=== PATIENT | female | born 1970 | race Caucasian/White ===

== ENCOUNTER 2019-04-06 08:59 | Day surgery (SDC) | payer BC ==
[2019-04-05 17:46] LABS: Basophils % 0.5 % (0-1.3); Hematocrit 41.8 % (36.0-45.0); Lymphocytes % 38.6 % (15.3-44.8); MPV 7.9 fL (7.6-11.3); RBC Red Blood Cell Count 4.85 M/uL (3.86-4.86)
[2019-04-05 17:50] LABS: Urine Appearance CLEAR; Urine Bilirubin NEGATIVE (NEG); Urine Blood NEGATIVE (NEG); Urine Color YELLOW; Urine Glucose NEGATIVE (NEG); Urine Protein NEGATIVE (NEG); Urine Specific Gravity <=1.005 (1.005-1.030); Urine Urobilinogen 0.2 mg/dL (0.2-1.0)
[2019-04-05 18:04] LABS: Urine Microscopic Reflex NO UMIC
[2019-04-06] MEDS ORDERED: BUPIVACAINE 0.25% PF 30 ML VIAL ONE (09:18)
[2019-04-06] MEDS ORDERED: GLYCOPYRROLATE 0.2 MG/ML SYR ONE (09:39)
[2019-04-06] MEDS ORDERED: propofoL 200 MG/20 ML VIAL IV ONE (09:39)
[2019-04-06] MEDS ORDERED: MIDAZOLAM HCL 2 MG/2 ML INJ ONE (09:39)
[2019-04-06] MEDS ORDERED: FENTANYL CITR 250 MCG/5 ML ONE (09:39)
[2019-04-06] MEDS ORDERED: dexAMETHasone 10 MG/ML VIAL ONE (09:39)
[2019-04-06] MEDS ORDERED: LIDOCAINE 2% MPF 5 ML VIAL ONE (09:39)
[2019-04-06] MEDS ORDERED: ROCURONIUM 50 MG/5 ML VIAL IV ONE (09:41)
[2019-04-06] MEDS ORDERED: SCOPOLAMINE HYDROBROMIDE PATCH TD ONE ×3 (09:50→10:56)
[2019-04-06] MEDS ORDERED: Ringers Lactate 0 ML IV ONE (09:51)
[2019-04-06] MEDS ORDERED: Ringers Lactate 1,000 ML IV ONE ×2 (10:56→11:30)
[2019-04-06] MEDS ORDERED: CEFAZOLIN/SWI 2gm 0 GM/0 ML SYR ONE (10:56)
[2019-04-06] MEDS ORDERED: KETOROLAC 30 MG/ML INJ ONE (11:06)
[2019-04-06] MEDS ORDERED: ONDANSETRON 4 MG/2 ML VIAL ONE (11:35)
[2019-04-06] MEDS ORDERED: PROMETHAZINE INJ 25 MG/ML AMP IV PRN (11:44)
[2019-04-06] MEDS ORDERED: MEPERIDINE HCL 25 MG/0.5 ML IM PRN (11:44)
[2019-04-06] MEDS ORDERED: HYDROCODONE/APAP 5/325 MG TAB PO PRN (11:44)
[2019-04-06] MEDS ORDERED: IBUPROFEN 200 MG TAB PO PRN (11:44)
--- NOTE | 2019-04-06 11:51 | P.BOP ---
Preoperative diagnosis: pelvic pain, endometriosis Postoperative diagnosis: same Primary procedure: laparoscopy B/L oophorectomy, left salpingectomy, endometriosis excision Finished Yarn Examiner: Bianka Nash Estimated blood loss: min Specimen: B/L oavries, left tube, right lateral wall endo Findings: cds obliteration w sigmoid/rectal adhesions,L distal lateral wall endo /scar Anesthesia: General Complications: None Transferred to: Recovery Room Condition: Good
[2019-04-06 12:32] VITALS: BP 107/79; TEMP 97.1; O2SAT 100
[2019-04-06] MEDS ORDERED: HYDROCODONE/APAP 5/325 MG TAB ONE (12:37)
--- NOTE | 2019-04-06 21:41 | OP ---
Date of Procedure: 04/06/2019 Surgeon: Rylee Quinones MD Shopping Inspector: Bianka Winchester. Preoperative Diagnoses: Pelvic pain, history of endometriosis. Postoperative Diagnoses: Pelvic pain, history of endometriosis. Procedures Performed: Diagnostic laparoscopy, bilateral oophorectomy, left salpingectomy, and endome triosis excision. Estimated Blood Loss: Minimal. Specimens: Bilateral ovaries, left tube, which was dilated and right lateral wall endometriosis. Complications: No complications. Drains: None. Condition: Patient's condition stable. Findings: The right lateral wall endometriosis was between the rectosigmoid and the ureter on the ri ght side. There was also an implant or possibly a scar from the hysterectomy in the distal part of t he left lateral wall and then the rectum was adhered to the peritoneum of the cul-de-sac obliterating the cul-de-sac. However, discrete endometriosis was not seen here and so there was no role for me t o take this down in order for her pain to be better. The patient tolerated the procedure well. Indications For Procedure: A 48-year-old female with history of endometriosis status post hysterecto my, right salpingectomy, and endometriosis removal in 2012. Has recurrent pain. Ultrasound showed o varian cysts at different points in time. The patient has been on suppression with Depot medroxyprog esterone, but not well tolerated and the pain was not well controlled either. That was stopped. Pat ient tried to observe, but the pain was impairing her quality of life severely and causing dysfunctio n to her occupation. So she is ready to have surgical intervention and so she was consented for a la paroscopy, bilateral oophorectomy, left salpingectomy, endometriosis excision, and then postoperative hormone therapy. Description Of Procedure: After informed consent was verified, patient was brought to the OR, placed in a supine fashion on the operating table. After general anesthesia was given, she was placed in d orsal lithotomy position using Landry stirrups. Pelvic exam performed and no adnexal masses were note d. Abdomen, vulva, vagina, and perineum were prepped and draped in a sterile fashion. Rodrigez was placed to drain the bladder and a sponge on the stick was placed in the vagina for manipulation. A 1 cm infraumbilical incision made with a scalpel. Fascia incised, tagged with 0 Vicryl sutures on both sides. Peritoneum entered bluntly and S-retractors placed. Javon introduced. Site of entry w as checked, unremarkable. The patient placed in Trendelenburg. Entire pelvic cavity was well inspec florentino. The appendix was visualized and normal. Left lower quadrant suprapubic 5 ports were placed aft er injecting 0.25% Marcaine with epi, 5 mL at each site of the fascia and the skin. Then survey of t he pelvic cavity was conducted. Both ovaries appeared to be unremarkable. The left tube was swollen . Distal hydrosalpinx was seen and the endometriosis was obvious on the right lateral wall between t he ureter and the rectosigmoid. There was an area of scar at the distal ureter on the left side and lateral wall and cul-de-sac was obliterated. The plan was to remove the endo on the right lateral wall. Then remove both ovaries and the left tub e. Peritoneum was picked up on the lateral wall and incised with the tip of scissors. Then, once this p galen was opened up retroperitoneally, the implants were circumferentially dissected. The peritoneum was taken down with the help of the LigaSure. These were deep infiltrating implants, so dissection h ad to be performed to separate them from the underlying tissues. There was mostly fatty tissue in th e presacral space, which had to be dissected. The vessels and the ureter were to the left lateral as pect. Once the implants were removed, they were handed off for permanent pathology. The right ovary was taken by cauterizing and cutting the right IP and then the left IP was taken down as well and th e tube removed with the ovary. All these were placed in a bag and retrieved through the umbilical po rt. Thorough irrigation and suction were performed. The pararectal spaces were opened up while atte mpting to see if there is any endometriosis and the cul-de-sac that is obliterated. The adhesions we re to the wall of the rectum from the posterior vaginal wall, possibly after endo treatment this coul d have occurred. Thorough irrigation was performed. No evidence of any bleeding. This was left federico ne as there was no evident endometriosis anywhere else on the vaginal cuff or in these adhesions. Al l the trocars were removed under direct vision after the specimens were retrieved. The fascia at the umbilicus and all the other 2 incisions were injected with Marcaine with epi and fascia closed with 0 Vicryl in [id number] stitch and then all 4-0 Vicryl sutures interrupted for skin closure. The vaginal sponge on a stick and Rodrigez were removed. Instrument, needle, and sponge counts were correc t at the end of the case. The patient tolerated the procedure well. She will follow up with me in 1 week. All the findings have been explained to the patient's and her family. MICHAEL Voice ID: [id number] Report ID: [id number]
== END 2019-04-06 13:31 | disposition home or self-care (01) ==
LOC: OR 08:59
PROVIDERS: ATTEND Obstetrics & Gynecology
PROC: 0UT64ZZ Resection of Left Fallopian Tube, Percutaneous Endoscopic Approach (ICD-10-PCS; 2019-04-06)
PROC: 0DBW4ZZ Excision of Peritoneum, Percutaneous Endoscopic Approach (ICD-10-PCS; 2019-04-06)
PROC: 0UT24ZZ Resection of Bilateral Ovaries, Percutaneous Endoscopic Approach (ICD-10-PCS; principal; 2019-04-06 10:30)
DX: N80.3 Endometriosis of pelvic peritoneum (principal); N83.202 Unspecified ovarian cyst, left side; N83.201 Unspecified ovarian cyst, right side; N70.11 Chronic salpingitis; Z90.710 Acquired absence of both cervix and uterus; Z90.79 Acquired absence of other genital organ(s)
CPT/HCPCS: 85025; 36415; 86900; 86850; 81025; 86901; 88305; 81003; 58661; 58662; J2704; J2250; J3010; J1100; J7120 ×2; J2405; J0690

== ENCOUNTER 2022-05-02 16:47 | Emergency (ER) | payer BC ==
--- OUTSIDE RECORDS SUMMARY | 2022-05-02 16:52 | XMS REPORT | Continuity of Care Document ---
:1970 Author Organization [facility] t Address [address] [place] [address] Care Team Providers Name Role Phone Belgica Aguilera MD Primary Care Physician CAROLINA_[place]armony Attending Clinician Unavailable Belgica Aguilera Attending Clinician [phone] Jayla Parra Attending Clinician [phone] KAR JO Attending Clinician Unavailable KULWINDER VILLEGAS Attending Clinician Unavailable [place]_[place] Admitting Clinician Unavailable Payers Payer Name Policy Type Policy Number Effective Date Expiration Date Rishi rahman [place] [id number] 2017 00:00:00 Problems Condition Condition Condition Status Onset Resolution Last Treating Co mments Source Name Details Category Date Date Treatment Clinician Date Long-term Long-term Problem Active Swe [facility] drug Drug 7-25 Communi therapy Therapy 00:00: ty 00 [facility] Hyperlipid Hyperlipid Problem Active 2020-05 S weann-mariey emia emia 2-06 Communi 00:00: ty 00 [facility] Hypothyroi Hypothyroi Problem Active 2020-05 S weeddie dism dism 0-20 Communi 00:00: ty 00 [facility] Scoliosis Scoliosis Problem Active 2020-05 Swe eddie deformity Deformity 0-20 Comm [facility] spine [facility] Spine 00:00: ty 00 [facility] Abdominal Abdominal Problem Active Swe eddie pain Pain 4-01 Communi 00:00: ty 00 [facility] Adult Adult Problem Active 2017-05 Formerly [facility] 0-16 Communi examinatio Examinatio 00:00: ty n n 00 [facility] Allergies, Adverse Reactions, Alerts Allergy Allergy Status Severity Reaction(s) Onset Inactive Treating Comm ents Source Name Type Date Date Clinician Latex Propensi Active Other (See blisters Me thodi ty to Comments) [address] st adverse 00:00: Hospita reaction 00 l s to drug Droperid Propensi Active Anxiety And Metho di ol ty to 06-[address] adverse 00:00: Hospita reaction 00 l s to drug Naproxen Propensi Active Swelling Meth ailyn ty to 2 st adverse 00:00: Hospita reaction 00 l s to drug INAPSINE Allergy Active Fatal Anaphylaxis Sw eeny to Communi substanc ty e Hospita l Clinics Family History Family Member Diagnosis Comments Start Date Stop Date Source Natural father Dementia [facility] Natural father Diabetes [facility] Natural mother Scoliosis [facility] Social History Social Habit Start Date Stop Date Quantity Comments Source Alcohol intake 2020-08-26 2020-08-26 Ex-drinker [facility] 00:00:00 00:00:00 (finding) Hospital Tobacco use and 2020-08-26 2020-08-26 Smokeless tobacco [facility] exposure 00:00:00 00:00:00 non-user Hospital Sex Assigned At [birth year] [facility] 00:00:00 00:00:00 Hospital Smoking Status Start Date Stop Date Source Never smoked tobacco [facility] Medications Ordered Filled Start Stop Current Ordering Indication Dosage Frequency Signature Comments Components Source Medication Medication Date Date Medication? Clinician (SIG) Name Name B12 LIPO-B B12 LIPO-B No B12 LIPO-B [place] [facility] 1-06 [facility] LIPO-B B12 LIPO-B No B12 LIPO-B [place] [facility] IM 1-06 [facility]-B B12 LIPO-B No B12 LIPO-B [place] [facility] IM 06 IM [facility] 00:00: [facility] B12 LIPO-B B12 LIPO-B 2022-0 No B12 LIPO-B [place] [facility] 05-22 [facility]IPO-B B12 LIPO-B 0 No B12 LIPO-B [place] [facility] IM 05-22 IM [facility] B12 LIPO-B B12 LIPO-B 0 No B12 LIPO-B [place] [facility] IM 05-22 IM [facility]:00: [facility] B12 LIPO-B B12 LIPO-B 0 No B12 LIPO-B [place] [facility] IM 05-22 IM [facility] B12 LIPO-B B12 LIPO-B 0 No B12 LIPO-B [place] [facility] IM 05-22 IM Communi 00:00: ty 00 [facility] Clinics B12 LIPO-B B12 LIPO-B 0 No B12 LIPO-B [place] [facility] IM 05-22 IM [facility] B12 LIPO-B B12 LIPO-B 0 No B12 LIPO-B [place] [facility] IM 05-22 IM Communi 00:00: ty 00 [facility] B12 LIPO-B B12 LIPO-B 0 No B12 LIPO-B [place] [facility] IM 05-22 IM [facility]: [facility] B12 LIPO-B B12 LIPO-B 0 No B12 LIPO-B [place] [facility] IM 05-22 IM [facility] 00:00: [facility] B12 LIPO-B B12 LIPO-B 0 No B12 LIPO-B [place] [facility] IM 05-22 IM [facility] 00:00: [facility] B12 LIPO-B B12 LIPO-B 0 No B12 LIPO-B [place] [facility] IM 05-22 IM Communi 00:00: ty 00 [facility]ita [facility] Clinics B12 LIPO-B B12 LIPO-B 0 No B12 LIPO-B [place] [facility] IM 05-22 IM [facility] B12 LIPO-B B12 LIPO-B 0 No B12 LIPO-B [place] [facility] IM -06 IM Communi 00:00: ty 00 [facility] B12 LIPO-B B12 LIPO-B No B12 LIPO-B [place] IM IM 05-22 IM Communi 00:00: ty 00 [facility] Kenalog 40 Kenalog 40 2020-05 No Kenalog 40 [place] mg/mL mg/mL 2-06 mg/mL Communi suspension suspension 17:19: suspension ty [facility] injectionTa injectionTa injectionT ke 2 mL by ke 2 mL by marshall 2 mL [facility] injection injection by route. route. injection route. meloxicam Yes TAKE 1 Method i (MOBIC) 15 6-[address] mg tablet 00:00: MOUTH Hospita 00 EVERY DAY l meloxicam Yes 15mg Q24H TAKE 1 Method i (MOBIC) 15 2-24 TABLET (15 st mg tablet 00:00: MG TOTAL) Hos david 00 BY MOUTH l DAILY NEEDED FOR MODERATE PAIN. estradioL Yes 1mg QD Take 1 mg Met hodi (ESTRACE) 1 -[address] MG tablet 00:00: daily. Hospit a 00 l estradiol 1 estradiol 1 No estradiol [place] mg tablet mg tablet 1 mg Commu ni Take 1 Take 1 tablet ty tablet tablet Take 1 Hospita every day every day tablet l by oral by oral every day Clin ics route for route for by oral 90 days. 90 days. route for 90 days. levothyroxi levothyroxi No 1 Q1D levothyrox [place] ne 75 mcg ne 75 mcg ine 75 mcg Communi tablet Take tablet Take tablet ty 1 tablet 1 tablet Take 1 Hospi ta every day every day tablet l by oral by oral every day Clin ics route. route. by oral route. meloxicam meloxicam No meloxicam [place] 15 mg 15 mg 15 mg Communi tablet prn tablet prn tablet prn ty [facility] metaxalone metaxalone No 1 Q1D metaxalone [place] 800 mg 800 mg 800 mg Communi tablet Take tablet Take tablet ty 1 tablet 1 tablet Take 1 Hospi ta every day every day tablet l by oral by oral every day Clin ics route at route at by oral bedtime. bedtime. route at bedtime. prednisone prednisone No prednisone [place] 20 mg 20 mg 20 mg Communi tablet prn tablet prn tablet prn [facility] estradiol 1 estradiol 1 No estradiol [place] mg tablet mg tablet 1 mg Commu ni Take 1 Take 1 tablet ty tablet tablet Take 1 Hospita every day every day tablet l by oral by oral every day Clin ics route for route for by oral 90 days. 90 days. route for 90 days. levothyroxi levothyroxi No levothyrox [place] ne 75 mcg ne 75 mcg ine 75 mcg Communi tablet Take tablet Take tablet ty 1 tablet 1 tablet Take 1 Hospi ta every day every day tablet l by oral by oral every day Clin ics route. route. by oral route. meloxicam meloxicam No meloxicam [place] 15 mg 15 mg 15 mg Communi tablet prn tablet prn tablet prn [facility] prednisone prednisone No prednisone [place] 20 mg 20 mg 20 mg Communi tablet prn tablet prn tablet prn [facility] rosuvastati rosuvastati No 1 Q1D rosuvastat [place] n 5 mg n 5 mg in 5 mg Communi tablet Take tablet Take tablet ty 1 tablet 1 tablet Take 1 Hospi ta every day every day tablet l by oral by oral every day Clin ics route. route. by oral route. estradiol 1 estradiol 1 No estradiol [place] mg tablet mg tablet 1 mg Commu ni Take 1 Take 1 tablet ty tablet tablet Take 1 Hospita every day every day tablet l by oral by oral every day Clin ics route for route for by oral 90 days. 90 days. route for 90 days. Kenalog 40 Kenalog 40 No 2mL Kenalog 40 [place] mg/mL mg/mL mg/mL Communi suspension suspension suspension ty for for for Hospita injection injection injection l Take 2 mL Take 2 mL Take 2 mL Clinics by by by injection injection injection route. route. route. levothyroxi levothyroxi No levothyrox [place] ne 75 mcg ne 75 mcg ine 75 mcg Communi tablet Take tablet Take tablet ty 1 tablet 1 tablet Take 1 Hospi ta every day every day tablet l by oral by oral every day Clin ics route. route. by oral route. meloxicam meloxicam No meloxicam [place] 15 mg 15 mg 15 mg Communi tablet prn tablet prn tablet prn [facility] prednisone prednisone No prednisone [place] 20 mg 20 mg 20 mg Communi tablet prn tablet prn tablet prn [facility] rosuvastati rosuvastati No 1 Q1D rosuvastat [place] n 5 mg n 5 mg in 5 mg Communi tablet Take tablet Take tablet ty 1 tablet 1 tablet Take 1 Hospi ta every day every day tablet l by oral by oral every day Clin ics route. route. by oral route. estradiol 1 estradiol 1 No estradiol [place] mg tablet mg tablet 1 mg Commu ni Take 1 Take 1 tablet ty tablet tablet Take 1 Hospita every day every day tablet l by oral by oral every day Clin ics route for route for by oral 90 days. 90 days. route for 90 days. levothyroxi levothyroxi No levothyrox [place] ne 75 mcg ne 75 mcg ine 75 mcg Communi tablet Take tablet Take tablet ty 1 tablet 1 tablet Take 1 Hospi ta every day every day tablet l by oral by oral every day Clin ics route. route. by oral route. meloxicam meloxicam No meloxicam [place] 15 mg 15 mg 15 mg Communi tablet prn tablet prn tablet prn [facility] prednisone prednisone No prednisone [place] 20 mg 20 mg 20 mg Communi tablet prn tablet prn tablet prn [facility] rosuvastati rosuvastati No rosuvastat [place] n 5 mg n 5 mg in 5 mg Communi tablet Take tablet Take tablet ty 1 tablet 1 tablet Take 1 Hospi ta every day every day tablet l by oral by oral every day Clin ics route. route. by oral route. estradiol 1 estradiol 1 No estradiol [place] mg tablet mg tablet 1 mg Commu ni Take 1 Take 1 tablet ty tablet tablet Take 1 Hospita every day every day tablet l by oral by oral every day Clin ics route for route for by oral 90 days. 90 days. route for 90 days. levothyroxi levothyroxi No levothyrox [place] ne 75 mcg ne 75 mcg ine 75 mcg Communi tablet Take tablet Take tablet ty 1 tablet 1 tablet Take 1 Hospi ta every day every day tablet l by oral by oral every day Clin ics route. route. by oral route. meloxicam meloxicam No meloxicam [place] 15 mg 15 mg 15 mg Communi tablet prn tablet prn tablet prn [facility] prednisone prednisone No prednisone [place] 20 mg 20 mg 20 mg Communi tablet prn tablet prn tablet prn [facility] rosuvastati rosuvastati No rosuvastat [place] n 5 mg n 5 mg in 5 mg Communi tablet Take tablet Take tablet ty 1 tablet 1 tablet Take 1 Hospi ta every day every day tablet l by oral by oral every day Clin ics route. route. by oral route. estradiol 1 estradiol 1 No estradiol [place] mg tablet mg tablet 1 mg Commu ni Take 1 Take 1 tablet ty tablet tablet Take 1 Hospita every day every day tablet l by oral by oral every day Clin ics route for route for by oral 90 days. 90 days. route for 90 days. levothyroxi levothyroxi No levothyrox [place] ne 75 mcg ne 75 mcg ine 75 mcg Communi tablet Take tablet Take tablet ty 1 tablet 1 tablet Take 1 Hospi ta every day every day tablet l by oral by oral every day Clin ics route. route. by oral route. meloxicam meloxicam No meloxicam [place] 15 mg 15 mg 15 mg Communi tablet prn tablet prn tablet prn [facility] prednisone prednisone No prednisone [place] 20 mg 20 mg 20 mg Communi tablet prn tablet prn tablet prn [facility] rosuvastati rosuvastati No rosuvastat [place] n 5 mg n 5 mg in 5 mg Communi tablet Take tablet Take tablet ty 1 tablet 1 tablet Take 1 Hospi ta every day every day tablet l by oral by oral every day Clin ics route. route. by oral route. estradiol 1 estradiol 1 No estradiol [place] mg tablet mg tablet 1 mg Commu ni Take 1 Take 1 tablet ty tablet tablet Take 1 Hospita every day every day tablet l by oral by oral every day Clin ics route for route for by oral 90 days. 90 days. route for 90 days. levothyroxi levothyroxi No levothyrox [place] ne 75 mcg ne 75 mcg ine 75 mcg Communi tablet Take tablet Take tablet ty 1 tablet 1 tablet Take 1 Hospi ta every day every day tablet l by oral by oral every day Clin ics route. route. by oral route. meloxicam meloxicam No meloxicam [place] 15 mg 15 mg 15 mg Communi tablet prn tablet prn tablet prn [facility] prednisone prednisone No prednisone [place] 20 mg 20 mg 20 mg Communi tablet prn tablet prn tablet prn [facility] rosuvastati rosuvastati No rosuvastat [place] n 5 mg n 5 mg in 5 mg Communi tablet Take tablet Take tablet ty 1 tablet 1 tablet Take 1 Hospi ta every day every day tablet l by oral by oral every day Clin ics route. route. by oral route. estradiol 1 estradiol 1 No estradiol [place] mg tablet mg tablet 1 mg Commu ni Take 1 Take 1 tablet ty tablet tablet Take 1 Hospita every day every day tablet l by oral by oral every day Clin ics route for route for by oral 90 days. 90 days. route for 90 days. levothyroxi levothyroxi No levothyrox [place] ne 75 mcg ne 75 mcg ine 75 mcg Communi tablet Take tablet Take tablet ty 1 tablet 1 tablet Take 1 Hospi ta every day every day tablet l by oral by oral every day Clin ics route. route. by oral route. meloxicam meloxicam No meloxicam [place] 15 mg 15 mg 15 mg Communi tablet prn tablet prn tablet prn [facility] prednisone prednisone No prednisone [place] 20 mg 20 mg 20 mg Communi tablet prn tablet prn tablet prn [facility] rosuvastati rosuvastati No rosuvastat [place] n 5 mg n 5 mg in 5 mg Communi tablet Take tablet Take tablet ty 1 tablet 1 tablet Take 1 Hospi ta every day every day tablet l by oral by oral every day Clin ics route. route. by oral route. estradiol 1 estradiol 1 No estradiol [place] mg tablet mg tablet 1 mg Commu ni Take 1 Take 1 tablet ty tablet tablet Take 1 Hospita every day every day tablet l by oral by oral every day Clin ics route for route for by oral 90 days. 90 days. route for 90 days. levothyroxi levothyroxi No levothyrox [place] ne 75 mcg ne 75 mcg ine 75 mcg Communi tablet Take tablet Take tablet ty 1 tablet 1 tablet Take 1 Hospi ta every day every day tablet l by oral by oral every day Clin ics route. route. by oral route. meloxicam meloxicam No meloxicam [place] 15 mg 15 mg 15 mg Communi tablet prn tablet prn tablet prn [facility] metaxalone metaxalone No metaxalone [place] 800 mg 800 mg 800 mg Communi tablet TAKE tablet TAKE tablet ty 1 TABLET BY 1 TABLET BY TAKE 1 Hospita MOUTH AT MOUTH AT TABLET BY l BEDTIME BEDTIME MOUTH AT Clini cs BEDTIME prednisone prednisone No prednisone [place] 20 mg 20 mg 20 mg Communi tablet prn tablet prn tablet prn [facility] rosuvastati rosuvastati No rosuvastat [place] n 5 mg n 5 mg in 5 mg Communi tablet Take tablet Take tablet ty 1 tablet 1 tablet Take 1 Hospi ta every day every day tablet l by oral by oral every day Clin ics route. route. by oral route. estradiol 1 estradiol 1 No estradiol [place] mg tablet mg tablet 1 mg Commu ni Take 1 Take 1 tablet ty tablet tablet Take 1 Hospita every day every day tablet l by oral by oral every day Clin ics route for route for by oral 90 days. 90 days. route for 90 days. levothyroxi levothyroxi No levothyrox [place] ne 75 mcg ne 75 mcg ine 75 mcg Communi tablet Take tablet Take tablet ty 1 tablet 1 tablet Take 1 Hospi ta every day every day tablet l by oral by oral every day Clin ics route. route. by oral route. meloxicam meloxicam No meloxicam [place] 15 mg 15 mg 15 mg Communi tablet prn tablet prn tablet prn [facility] metaxalone metaxalone No metaxalone [place] 800 mg 800 mg 800 mg Communi tablet TAKE tablet TAKE tablet ty 1 TABLET BY 1 TABLET BY TAKE 1 Hospita MOUTH AT MOUTH AT TABLET BY l BEDTIME BEDTIME MOUTH AT Clini cs BEDTIME prednisone prednisone No prednisone [place] 20 mg 20 mg 20 mg Communi tablet prn tablet prn tablet prn [facility] rosuvastati rosuvastati No rosuvastat [place] n 5 mg n 5 mg in 5 mg Communi tablet Take tablet Take tablet ty 1 tablet 1 tablet Take 1 Hospi ta every day every day tablet l by oral by oral every day Clin ics route. route. by oral route. estradiol 1 estradiol 1 No estradiol [place] mg tablet mg tablet 1 mg Commu ni Take 1 Take 1 tablet ty tablet tablet Take 1 Hospita every day every day tablet l by oral by oral every day Clin ics route for route for by oral 90 days. 90 days. route for 90 days. levothyroxi levothyroxi No levothyrox [place] ne 75 mcg ne 75 mcg ine 75 mcg Communi tablet Take tablet Take tablet ty 1 tablet 1 tablet Take 1 Hospi ta every day every day tablet l by oral by oral every day Clin ics route. route. by oral route. meloxicam meloxicam No meloxicam [place] 15 mg 15 mg 15 mg Communi tablet prn tablet prn tablet prn [facility] metaxalone metaxalone No metaxalone [place] 800 mg 800 mg 800 mg Communi tablet TAKE tablet TAKE tablet ty 1 TABLET BY 1 TABLET BY TAKE 1 Hospita MOUTH AT MOUTH AT TABLET BY l BEDTIME BEDTIME MOUTH AT [facility] BEDTIME prednisone prednisone No prednisone [place] 20 mg 20 mg 20 mg Communi tablet prn tablet prn tablet prn [facility] rosuvastati rosuvastati No rosuvastat [place] n 5 mg n 5 mg in 5 mg Communi tablet Take tablet Take tablet ty 1 tablet 1 tablet Take 1 Hospi ta every day every day tablet l by oral by oral every day Clin ics route. route. by oral route. estradiol 1 estradiol 1 No estradiol [place] mg tablet mg tablet 1 mg Commu ni Take 1 Take 1 tablet ty tablet tablet Take 1 Hospita every day every day tablet l by oral by oral every day Clin ics route for route for by oral 90 days. 90 days. route for 90 days. levothyroxi levothyroxi No levothyrox [place] ne 75 mcg ne 75 mcg ine 75 mcg Communi tablet Take tablet Take tablet ty 1 tablet 1 tablet Take 1 Hospi ta every day every day tablet l by oral by oral every day Clin ics route. route. by oral route. meloxicam meloxicam No meloxicam [place] 15 mg 15 mg 15 mg Communi tablet prn tablet prn tablet prn [facility] metaxalone metaxalone No metaxalone [place] 800 mg 800 mg 800 mg Communi tablet TAKE tablet TAKE tablet ty 1 TABLET BY 1 TABLET BY TAKE 1 Hospita MOUTH AT MOUTH AT TABLET [facility] M[facility]one No prednisone [place] 20 mg 20 mg 20 mg Communi tablet prn tablet prn tablet prn ty [facility] rosuvastati rosuvastati No rosuvastat [place] n 5 mg n 5 mg in 5 mg Communi tablet Take tablet Take tablet ty 1 tablet 1 tablet Take 1 Hospi ta every day every day tablet l by oral by oral every day Clin ics route. route. by oral route. estradiol 1 estradiol 1 No estradiol [place] mg tablet mg tablet 1 mg Commu ni Take 1 Take 1 tablet ty tablet tablet Take 1 Hospita every day every day tablet l by oral by oral every day Clin ics route for route for by oral 90 days. 90 days. route for 90 days. levothyroxi levothyroxi No levothyrox [place] ne 75 mcg ne 75 mcg ine 75 mcg Communi tablet TAKE tablet TAKE tablet ty 1 TABLET BY 1 TABLET BY TAKE 1 [facility] MOUTH EVERY MOUTH EVERY TABLET BY l DAY DAY MOUTH Clinics EVERY DAY meloxicam meloxicam No meloxicam [place] 15 mg 15 mg 15 mg Communi tablet prn tablet prn tablet prn ty [facility] metaxalone metaxalone No metaxalone [place] 800 mg 800 mg 800 mg Communi tablet TAKE tablet TAKE tablet ty 1 TABLET BY 1 TABLET BY TAKE 1 [facility] MOUTH AT MOUTH AT TABLET BY l [facility] M[facility]nisone No prednisone [place] 20 mg 20 mg 20 mg Communi tablet prn tablet prn tablet prn [facility] rosuvastati rosuvastati No rosuvastat [place] n 5 mg n 5 mg in 5 mg Communi tablet Take tablet Take tablet ty 1 tablet 1 tablet Take 1 Hospi ta every day every day tablet l by oral by oral every day Clin ics route. route. by oral route. estradiol 1 estradiol 1 No estradiol [place] mg tablet mg tablet 1 mg Commu ni Take 1 Take 1 tablet ty tablet tablet Take 1 Hospita every day every day tablet l by oral by oral every day Clin ics route for route for by oral 90 days. 90 days. route for 90 days. levothyroxi levothyroxi No levothyrox [place] ne 75 mcg ne 75 mcg ine 75 mcg Communi tablet TAKE tablet TAKE tablet ty 1 TABLET BY 1 TABLET BY TAKE 1 Hospita MOUTH EVERY MOUTH EVERY TABLET BY l DAY DAY MOUTH Clinics EVERY DAY meloxicam meloxicam No meloxicam [place] 15 mg 15 mg 15 mg Communi tablet prn tablet prn tablet prn [facility] metaxalone metaxalone No metaxalone [place] 800 mg 800 mg 800 mg Communi tablet TAKE tablet TAKE tablet ty 1 TABLET BY 1 [facility] TABLET BY l BEDTIME BEDTIME MOUTH AT Clini cs BEDTIME prednisone prednisone No prednisone [place] 20 mg 20 mg 20 mg Communi tablet prn tablet prn tablet prn [facility] No rosuvastat [place] n 5 mg n 5 mg in 5 mg Communi tablet Take tablet Take tablet ty 1 tablet 1 tablet Take 1 Hospi ta every day every day tablet l by oral by oral every day Clin ics route. route. by oral route. estradiol 1 estradiol 1 No estradiol [place] mg tablet mg tablet 1 mg Commu ni Take 1 Take 1 tablet ty tablet tablet Take 1 Hospita every day every day tablet l by oral by oral every day Clin ics route for route for by oral 90 days. 90 days. route for 90 days. levothyroxi levothyroxi No levothyrox [place] ne 75 mcg ne 75 mcg ine 75 mcg Communi tablet TAKE tablet TAKE tablet ty 1 TABLET BY 1 TABLET BY TAKE 1 Hospita MOUTH EVERY MOUTH EVERY TABLET BY l DAY DAY MOUTH Clinics EVERY DAY meloxicam meloxicam No meloxicam [place] 15 mg 15 mg 15 mg Communi tablet prn tablet prn tablet prn [facility] metaxalone metaxalone No metaxalone [place] 800 mg 800 mg 800 mg Communi tablet TAKE tablet TAKE tablet ty 1 TABLET BY 1 [facility]T [facility] TABLET BY l BEDTIME BEDTIME MOUTH AT Clini cs BEDTIME prednisone prednisone No prednisone [place] 20 mg 20 mg 20 mg Communi tablet prn tablet prn tablet prn [facility] rosuvastati rosuvastati No rosuvastat [place] n 5 mg n 5 mg in 5 mg Communi tablet Take tablet Take tablet ty 1 tablet 1 tablet Take 1 Hospi ta every day every day tablet l by oral by oral every day Clin ics route. route. by oral route. estradiol 1 estradiol 1 No estradiol [place] mg tablet mg tablet 1 mg Commu ni Take 1 Take 1 tablet ty tablet tablet Take 1 Hospita every day every day tablet l by oral by oral every day Clin ics route for route for by oral 90 days. 90 days. route for 90 days. levothyroxi levothyroxi No levothyrox [place] ne 75 mcg ne 75 mcg ine 75 mcg Communi tablet TAKE tablet TAKE tablet ty 1 TABLET BY 1 TABLET BY TAKE 1 Hospita MOUTH EVERY MOUTH EVERY TABLET BY l DAY DAY MOUTH Clinics EVERY DAY meloxicam meloxicam No meloxicam [place] 15 mg 15 mg 15 mg Communi tablet prn tablet prn tablet prn [facility] [place] metaxalone metaxalone No metaxalone [place] 800 mg 800 mg 800 mg Communi tablet TAKE tablet TAKE tablet ty 1 TABLET BY 1 TABLET BY TAKE 1 Hospita MOUTH AT MOUTH AT TABLET BY l BEDTIME BEDTIME MOUTH AT Clini cs BEDTIME prednisone prednisone No prednisone [place] 20 mg 20 mg 20 mg Communi tablet prn tablet prn tablet prn [facility] rosuvastati rosuvastati No rosuvastat [place] n 5 mg n 5 mg in 5 mg Communi tablet Take tablet Take tablet ty 1 tablet 1 tablet Take 1 Hospi ta every day every day tablet l by oral by oral every day Clin ics route. route. by oral route. estradiol 1 estradiol 1 No estradiol [place] mg tablet mg tablet 1 mg Commu ni Take 1 Take 1 tablet ty tablet tablet Take 1 Hospita every day every day tablet l by oral by oral every day Clin ics route for route for by oral 90 days. 90 days. route for 90 days. levothyroxi levothyroxi No levothyrox [place] ne 75 mcg ne 75 mcg ine 75 mcg Communi tablet TAKE tablet TAKE tablet ty 1 TABLET BY 1 TABLET BY TAKE 1 Hospita MOUTH EVERY MOUTH EVERY TABLET BY l DAY DAY MOUTH Clinics EVERY DAY meloxicam meloxicam No meloxicam [place] 15 mg 15 mg 15 mg Communi tablet prn tablet prn tablet prn [facility] metaxalone metaxalone No metaxalone [place] 800 mg 800 mg 800 mg Communi tablet TAKE tablet TAKE tablet ty 1 TABLET BY 1 TABLET BY TAKE 1 Hospita MOUTH AT MOUTH AT TABLET BY l BEDTIME BEDTIME MOUTH AT Clini cs BEDTIME prednisone prednisone No prednisone [place] 20 mg 20 mg 20 mg Communi tablet prn tablet prn tablet prn ty [facility] rosuvastati rosuvastati No rosuvastat [place] n 5 mg n 5 mg in 5 mg Communi tablet Take tablet Take tablet ty 1 tablet 1 tablet Take 1 Hospi ta every day every day tablet l by oral by oral every day Clin ics route. route. by oral route. estradiol 1 estradiol 1 No estradiol [place] mg tablet mg tablet 1 mg Commu ni Take 1 Take 1 tablet ty tablet tablet Take 1 Hospita every day every day tablet l by oral by oral every day Clin ics route for route for by oral 90 days. 90 days. route for 90 days. levothyroxi levothyroxi No levothyrox [place] ne 75 mcg ne 75 mcg ine 75 mcg Communi tablet TAKE tablet TAKE tablet ty 1 TABLET BY 1 TABLET BY TAKE 1 Hospita MOUTH EVERY MOUTH EVERY TABLET BY l DAY DAY MOUTH Clinics EVERY DAY meloxicam meloxicam No meloxicam [place] 15 mg 15 mg 15 mg Communi tablet prn tablet prn tablet prn ty [facility] metaxalone metaxalone No metaxalone [place] 800 mg 800 mg 800 mg Communi tablet TAKE tablet TAKE tablet ty 1 TABLET BY 1 TABLET BY TAKE 1 Hospita MOUTH AT MOUTH AT TABLET BY l BEDTIME BEDTIME MOUTH AT Clini cs BEDTIME prednisone prednisone No prednisone [place] 20 mg 20 mg 20 mg Communi tablet prn tablet prn tablet prn [facility] No rosuvastat [place] n 5 mg n 5 mg in 5 mg Communi tablet Take tablet Take tablet ty 1 tablet 1 tablet Take 1 Hospi ta every day every day tablet l by oral by oral every day Clin ics route. route. by oral route. estradiol 1 estradiol 1 No estradiol [place] mg tablet 1 mg tablet 1 1 mg C [facility] TABLET TABLET tablet 1 ty ORALLY ORALLY TABLET Hospita DAILY 90 DAILY 90 ORALLY l DAYS DAYS DAILY 90 Clinics DAYS levothyroxi levothyroxi No levothyrox [place] ne 75 mcg ne 75 mcg ine 75 mcg Communi tablet TAKE tablet TAKE tablet ty 1 TABLET BY 1 TABLET BY TAKE 1 Hospita MOUTH EVERY MOUTH EVERY TABLET BY l DAY DAY MOUTH Clinics EVERY DAY meloxicam meloxicam No meloxicam [place] 15 mg 15 mg 15 mg Communi tablet prn tablet prn tablet prn ty Hospita l Clinics metaxalone metaxalone No metaxalone [place] 800 mg 800 mg 800 mg Communi tablet TAKE tablet TAKE tablet ty 1 TABLET BY 1 TABLET BY TAKE 1 Hospita MOUTH AT MOUTH [facility] rosuvastati No rosuvastat [place] n 5 mg n 5 mg in 5 mg Communi tablet Take tablet Take tablet ty 1 tablet 1 tablet Take 1 Hospi ta every day every day tablet l by oral by oral every day Clin ics route. route. by oral route. estradiol 1 estradiol 1 No estradiol [place] mg tablet 1 mg tablet 1 1 mg C [facility] TABLET TABLET tablet 1 ty ORALLY ORALLY TABLET Hospita DAILY 90 DAILY 90 ORALLY l DAYS DAYS DAILY 90 Clinics DAYS levothyroxi levothyroxi No levothyrox [place] ne 75 mcg ne 75 mcg ine 75 mcg Communi tablet TAKE tablet TAKE tablet ty 1 TABLET BY 1 TABLET BY TAKE 1 Hospita MOUTH EVERY MOUTH EVERY TABLET BY l DAY DAY MOUTH Clinics EVERY DAY meloxicam meloxicam No meloxicam [place] 15 mg 15 mg 15 mg Communi tablet prn tablet prn tablet prn ty [facility] Clinics metaxalone metaxalone No metaxalone [place] 800 mg 800 mg 800 mg Communi tablet TAKE tablet TAKE tablet ty 1 TABLET BY 1 TABLET BY TAKE 1 Hospita MOUTH AT MOUTH AT TABLET [facility] rosuvastati No 1 Q1D rosuvastat [place] n 5 mg n 5 mg in 5 mg Communi tablet Take tablet Take tablet ty 1 tablet 1 tablet Take 1 Hospi ta every day every day tablet l by oral by oral every day Clin ics route. route. by oral route. triazolam triazolam No triazolam [place] 0.25 mg 0.25 mg 0.25 mg Commun i tablet TAKE tablet TAKE tablet ty 1 TABLET 1 1 TABLET 1 TAKE 1 H ospita HOUR BEFORE HOUR BEFORE TABLET 1 l APPOINTMENT APPOINTMENT HOUR Amauri powell . BRING . BRING BEFORE REMAINING REMAINING APPOINTMEN TABLETS TO TABLETS TO T. BRING APPOINTMENT APPOINTMENT REMAINING WITH YOU. WITH YOU. TABLETS TO APPOINTMEN T WITH YOU. Immunizations Ordered Immunization Filled Immunization Date Status Commen ts Source Name Name SARS-COV-2 SARS-COV-2 2020-06-18 Completed [place] [facility] (COVID-19) vaccine, (COVID-19) vaccine, 00:00:00 [facility] UNSPECIFIED UNSPECIFIED COVID-19 COVID-19 2020-06-18 Completed [place] [facility] (SARS-COV-2) (SARS-COV-2) 00:00:00 [facility] linics vaccine, unspecified vaccine, unspecified COVID-19 COVID-19 2020-06-18 Completed [place] [facility] (SARS-COV-2) (SARS-COV-2) 00:00:00 [facility] vaccine, unspecified vaccine, unspecified COVID-19 COVID-19 2020-06-18 Completed [place] [facility] (SARS-COV-2) (SARS-COV-2) 00:00:00 [facility] vaccine, unspecified vaccine, unspecified COVID-19 COVID-19 2020-06-18 Completed [place] [facility] (SARS-COV-2) (SARS-COV-2) 00:00:00 [facility] vaccine, unspecified vaccine, unspecified COVID-19 COVID-19 2020-06-18 Completed [place] [facility] (SARS-COV-2) (SARS-COV-2) 00:00:00 [facility] vaccine, unspecified vaccine, unspecified COVID-19 COVID-19 2020-06-18 Completed [place] [facility] (SARS-COV-2) (SARS-COV-2) 00:00:00 [facility] vaccine, unspecified vaccine, unspecified COVID-19 COVID-19 2020-06-18 Completed [place] [facility] (SARS-COV-2) (SARS-COV-2) 00:00:00 [facility] vaccine, unspecified vaccine, unspecified COVID-19 COVID-19 2020-06-18 Completed [place] [facility] (SARS-COV-2) (SARS-COV-2) 00:00:00 [facility] vaccine, unspecified vaccine, unspecified COVID-19 COVID-19 2020-06-18 Completed [place] [facility] (SARS-COV-2) (SARS-COV-2) 00:00:00 [facility] vaccine, unspecified vaccine, unspecified COVID-19 COVID-19 2020-06-18 Completed [place] [facility] (SARS-COV-2) (SARS-COV-2) 00:00:00 [facility] vaccine, unspecified vaccine, unspecified COVID-19 COVID-19 2020-06-18 Completed [place] [facility] (SARS-COV-2) (SARS-COV-2) 00:00:00 [facility] vaccine, unspecified vaccine, unspecified COVID-19 COVID-19 2020-06-18 Completed [place] [facility] (SARS-COV-2) (SARS-COV-2) 00:00:00 [facility] vaccine, unspecified vaccine, unspecified COVID-19 COVID-19 2020-06-18 Completed [place] [facility] (SARS-COV-2) (SARS-COV-2) 00:00:00 [facility] vaccine, unspecified vaccine, unspecified COVID-19 COVID-19 2020-06-18 Completed [place] [facility] (SARS-COV-2) (SARS-COV-2) 00:00:00 [facility] vaccine, unspecified vaccine, unspecified COVID-19 COVID-19 2020-06-18 Completed [place] [facility] (SARS-COV-2) (SARS-COV-2) 00:00:00 [facility] vaccine, unspecified vaccine, unspecified COVID-19 COVID-19 2020-06-18 Completed [place] [facility] (SARS-COV-2) (SARS-COV-2) 00:00:00 [facility] vaccine, unspecified vaccine, unspecified COVID-19 COVID-19 2020-06-18 Completed [place] [facility] (SARS-COV-2) (SARS-COV-2) 00:00:00 [facility] vaccine, unspecified vaccine, unspecified COVID-19 COVID-19 2020-06-18 Completed [place] [facility] (SARS-COV-2) (SARS-COV-2) 00:00:00 [facility] vaccine, unspecified vaccine, unspecified COVID-19 COVID-19 2020-06-18 Completed [place] [facility] (SARS-COV-2) (SARS-COV-2) 00:00:00 [facility] vaccine, unspecified vaccine, unspecified SARS-COV-2 SARS-COV-2 2020-05-21 Completed [place] [facility] (COVID-19) vaccine, (COVID-19) vaccine, 00:00:00 [facility] UNSPECIFIED UNSPECIFIED COVID-19 COVID-19 2020-05-21 Completed [place] [facility] (SARS-COV-2) (SARS-COV-2) 00:00:00 [facility] vaccine, unspecified vaccine, unspecified COVID-19 COVID-19 2020-05-21 Completed [place] [facility] (SARS-COV-2) (SARS-COV-2) 00:00:00 [facility] vaccine, unspecified vaccine, unspecified COVID-19 COVID-19 2020-05-21 Completed [place] [facility] (SARS-COV-2) (SARS-COV-2) 00:00:00 [facility] vaccine, unspecified vaccine, unspecified COVID-19 COVID-19 2020-05-21 Completed [place] [facility] (SARS-COV-2) (SARS-COV-2) 00:00:00 [facility] vaccine, unspecified vaccine, unspecified COVID-19 COVID-19 2020-05-21 Completed [place] [facility] (SARS-COV-2) (SARS-COV-2) 00:00:00 [facility] vaccine, unspecified vaccine, unspecified COVID-19 COVID-19 2020-05-21 Completed [place] [facility] (SARS-COV-2) (SARS-COV-2) 00:00:00 [facility] vaccine, unspecified vaccine, unspecified COVID-19 COVID-19 2020-05-21 Completed [place] [facility] (SARS-COV-2) (SARS-COV-2) 00:00:00 [facility] vaccine, unspecified vaccine, unspecified COVID-19 COVID-19 2020-05-21 Completed [place] [facility] (SARS-COV-2) (SARS-COV-2) 00:00:00 [facility] vaccine, unspecified vaccine, unspecified COVID-19 COVID-19 2020-05-21 Completed [place] [facility] (SARS-COV-2) (SARS-COV-2) 00:00:00 [facility] vaccine, unspecified vaccine, unspecified COVID-19 COVID-19 2020-05-21 Completed [place] [facility] (SARS-COV-2) (SARS-COV-2) 00:00:00 [facility] vaccine, unspecified vaccine, unspecified COVID-19 COVID-19 2020-05-21 Completed [place] [facility] (SARS-COV-2) (SARS-COV-2) 00:00:00 [facility] vaccine, unspecified vaccine, unspecified COVID-19 COVID-19 2020-05-21 Completed [place] [facility] (SARS-COV-2) (SARS-COV-2) 00:00:00 [facility] vaccine, unspecified vaccine, unspecified COVID-19 COVID-19 2020-05-21 Completed [place] [facility] (SARS-COV-2) (SARS-COV-2) 00:00:00 [facility] vaccine, unspecified vaccine, unspecified COVID-19 COVID-19 2020-05-21 Completed [place] [facility] (SARS-COV-2) (SARS-COV-2) 00:00:00 [facility] vaccine, unspecified vaccine, unspecified COVID-19 COVID-19 2020-05-21 Completed [place] [facility] (SARS-COV-2) (SARS-COV-2) 00:00:00 [facility] vaccine, unspecified vaccine, unspecified COVID-19 COVID-19 2020-05-21 Completed [place] [facility] (SARS-COV-2) (SARS-COV-2) 00:00:00 [facility] vaccine, unspecified vaccine, unspecified COVID-19 COVID-19 2020-05-21 Completed [place] [facility] (SARS-COV-2) (SARS-COV-2) 00:00:00 [facility] vaccine, unspecified vaccine, unspecified COVID-19 COVID-19 2020-05-21 Completed [place] [facility] (SARS-COV-2) (SARS-COV-2) 00:00:00 [facility] vaccine, unspecified vaccine, unspecified COVID-19 COVID-19 2020-05-21 Completed [place] [facility] (SARS-COV-2) (SARS-COV-2) 00:00:00 [facility]ics vaccine, unspecified vaccine, unspecified influenza, influenza, 2019-06-06 Completed [place] [facility] injectable, injectable, 00:00:00 [facility] quadrivalent quadrivalent influenza, influenza, 2019-06-06 Completed [place] [facility] injectable, injectable, 00:00:00 [facility] quadrivalent quadrivalent influenza, influenza, 2019-06-06 Completed [place] [facility] injectable, injectable, 00:00:00 [facility] quadrivalent quadrivalent influenza, influenza, 2019-06-06 Completed [place] [facility] injectable, injectable, 00:00:00 [facility] quadrivalent quadrivalent influenza, influenza, 2019-06-06 Completed [place] [facility] injectable, injectable, 00:00:00 [facility] quadrivalent quadrivalent influenza, influenza, 2019-06-06 Completed [place] [facility] injectable, injectable, 00:00:00 [facility] quadrivalent quadrivalent influenza, influenza, 2019-06-06 Completed [place] [facility] injectable, injectable, 00:00:00 [facility] quadrivalent quadrivalent influenza, influenza, 2019-06-06 Completed [place] [facility] injectable, injectable, 00:00:00 [facility] quadrivalent quadrivalent influenza, influenza, 2019-06-06 Completed [place] [facility] injectable, injectable, 00:00:00 [facility] Cli [facility] quadrivalent quadrivalent influenza, influenza, 2019-06-06 Completed [place] [facility] injectable, injectable, 00:00:00 [facility] quadrivalent quadrivalent influenza, influenza, 2019-06-06 Completed [place] [facility] injectable, injectable, 00:00:00 [facility] Cli [facility] quadrivalent quadrivalent influenza, influenza, 2019-06-06 Completed [place] [facility] injectable, injectable, 00:00:00 [facility] Cli [facility] quadrivalent quadrivalent influenza, influenza, 2019-06-06 Completed [place] [facility] injectable, injectable, 00:00:00 [facility] Cli [facility] quadrivalent quadrivalent influenza, influenza, 2019-06-06 Completed [place] [facility] injectable, injectable, 00:00:00 [facility] Cli [facility] quadrivalent quadrivalent influenza, influenza, 2019-06-06 Completed [place] [facility] injectable, injectable, 00:00:00 [facility] Cli [facility] quadrivalent quadrivalent influenza, influenza, 2019-06-06 Completed [place] [facility] injectable, injectable, 00:00:00 [facility] Cli [facility] quadrivalent quadrivalent influenza, influenza, 2019-06-06 Completed [place] [facility] injectable, injectable, 00:00:00 [facility] Cli [facility] quadrivalent quadrivalent influenza, influenza, 2019-06-06 Completed [place] [facility] injectable, injectable, 00:00:00 [facility] Cli [facility] quadrivalent quadrivalent influenza, influenza, 2019-06-06 Completed [place] [facility] injectable, injectable, 00:00:00 [facility] Cli [facility] quadrivalent quadrivalent influenza, influenza, 2019-06-06 Completed [place] [facility] injectable, injectable, 00:00:00 [facility] quadrivalent quadrivalent influenza, influenza, 2018-03-01 Completed [place] [facility] injectable, injectable, 10:44:20 Hospital Cli [facility] quadrivalent, quadrivalent, preservative free preservative free influenza, influenza, 2018-03-01 Completed [place] [facility] injectable, injectable, 10:44:20 Hospital Cli [facility]ics quadrivalent, quadrivalent, preservative free preservative free influenza, influenza, 2018-03-01 Completed [place] [facility] injectable, injectable, 10:44:20 Hospital Cli nics quadrivalent, quadrivalent, preservative free preservative free influenza, influenza, 2018-03-01 Completed [place] [facility] injectable, injectable, 10:44:20 Hospital Cli nics quadrivalent, quadrivalent, preservative free preservative free influenza, influenza, 2018-03-01 Completed [place] [facility] injectable, injectable, 10:44:20 Hospital Cli nics quadrivalent, quadrivalent, preservative free preservative free influenza, influenza, 2018-03-01 Completed [place] [facility] injectable, injectable, 10:44:20 Hospital Cli nics quadrivalent, quadrivalent, preservative free preservative free influenza, influenza, 2018-03-01 Completed [place] [facility] injectable, injectable, 10:44:20 Hospital Cli nics quadrivalent, quadrivalent, preservative free preservative free influenza, influenza, 2018-03-01 Completed [place] [facility] injectable, injectable, 10:44:20 Hospital Cli nics quadrivalent, quadrivalent, preservative free preservative free influenza, influenza, 2018-03-01 Completed [place] [facility] injectable, injectable, 10:44:20 Hospital Cli nics quadrivalent, quadrivalent, preservative free preservative free influenza, influenza, 2018-03-01 Completed [place] [facility] injectable, injectable, 10:44:20 Hospital Cli nics quadrivalent, quadrivalent, preservative free preservative free influenza, influenza, 2018-03-01 Completed [place] [facility] injectable, injectable, 10:44:20 Hospital Cli nics quadrivalent, quadrivalent, preservative free preservative free influenza, influenza, 2018-03-01 Completed [place] [facility] injectable, injectable, 10:44:20 Hospital Cli nics quadrivalent, quadrivalent, preservative free preservative free influenza, influenza, 2018-03-01 Completed [place] [facility] injectable, injectable, 10:44:20 Hospital Cli [facility]ics quadrivalent, quadrivalent, preservative free preservative free influenza, influenza, 2018-03-01 Completed [place] [facility] injectable, injectable, 10:44:20 Hospital Cli nics quadrivalent, quadrivalent, preservative free preservative free influenza, influenza, 2018-03-01 Completed [place] [facility] injectable, injectable, 10:44:20 Hospital Cli [facility]ics quadrivalent, quadrivalent, preservative free preservative free influenza, influenza, 2018-03-01 Completed [place] [facility] injectable, injectable, 10:44:20 Hospital Cli [facility]ics quadrivalent, quadrivalent, preservative free preservative free influenza, influenza, 2018-03-01 Completed [place] [facility] injectable, injectable, 10:44:20 Hospital Cli [facility]ics quadrivalent, quadrivalent, preservative free preservative free influenza, influenza, 2018-03-01 Completed [place] [facility] injectable, injectable, 10:44:20 Hospital Cli [facility] quadrivalent, quadrivalent, preservative free preservative free influenza, influenza, 2018-03-01 Completed [place] [facility] injectable, injectable, 10:44:20 Hospital Cli [facility] quadrivalent, quadrivalent, preservative free preservative free influenza, influenza, 2018-03-01 Completed [place] [facility] injectable, injectable, 10:44:20 Hospital Cli [facility] quadrivalent, quadrivalent, preservative free preservative free Vital Signs Vital Name Observation Time Observation Value Comments Source BP Diastolic 2021-12-08 00:00:00 90 mm[Hg] [facility] Height 2021-12-08 00:00:00 66 [in_i] [facility] s BMI (Body Mass 2021-12-08 00:00:00 28 kg/m2 [facility] s BP Systolic 2021-12-08 00:00:00 115 mm[Hg] [facility] s Body Weight 2021-12-08 00:00:00 2777.6 [oz_av] [facility] s BP Diastolic 2021-10-30 00:00:00 81 mm[Hg] [facility] s Height 2021-10-30 00:00:00 66 [in_i] [facility] s BMI (Body Mass 2021-10-30 00:00:00 27.6 kg/m2 [facility]) [facility] s BP Systolic 2021-10-30 00:00:00 129 mm[Hg] [facility] s Body Weight 2021-10-30 00:00:00 2736 [oz_av] [facility] s BP Diastolic 2021-10-21 00:00:00 79 mm[Hg] [facility] s Height 2021-10-21 00:00:00 66 [in_i] [facility] s BMI (Body Mass 2021-10-21 00:00:00 27.3 kg/m2 [facility] BP Systolic 2021-10-21 00:00:00 132 mm[Hg] [facility] Body Weight 2021-10-21 00:00:00 2704 [oz_av] [facility] s BP Diastolic 2021-10-14 00:00:00 75 mm[Hg] [facility] s Height 2021-10-14 00:00:00 66 [in_i] [facility] s BMI (Body Mass 2021-10-14 00:00:00 27.2 kg/m2 [facility]) [facility] s BP Systolic 2021-10-14 00:00:00 129 mm[Hg] [facility] Body Weight 2021-10-14 00:00:00 2696 [oz_av] [facility] s BP Diastolic 2021-09-30 00:00:00 64 mm[Hg] [facility] Height 2021-09-30 00:00:00 66 [in_i] [facility] s BMI (Body Mass 2021-09-30 00:00:00 27.3 kg/m2 [facility] s BP Systolic 2021-09-30 00:00:00 120 mm[Hg] [facility] Body Weight 2021-09-30 00:00:00 2705.6 [oz_av] [facility] s BP Diastolic 2021-09-16 00:00:00 73 mm[Hg] [facility] s Height 2021-09-16 00:00:00 66 [in_i] [facility] BMI (Body Mass 2021-09-16 00:00:00 27.4 kg/m2 [facility] BP Systolic 2021-09-16 00:00:00 142 mm[Hg] [facility] s Body Weight 2021-09-16 00:00:00 2720 [oz_av] [facility] s BP Diastolic 2021-09-04 00:00:00 81 mm[Hg] [facility] s Height 2021-09-04 00:00:00 66 [in_i] [facility] s BMI (Body Mass 2021-09-04 00:00:00 27.1 kg/m2 [facility]) [facility] s BP Systolic 2021-09-04 00:00:00 142 mm[Hg] [facility] Body Weight 2021-09-04 00:00:00 2688 [oz_av] [facility] BP Diastolic 2021-08-26 00:00:00 83 mm[Hg] [facility] s Height 2021-08-26 00:00:00 66 [in_i] [facility] BMI (Body Mass 2021-08-26 00:00:00 27 kg/m2 [facility]) [facility] s BP Systolic 2021-08-26 00:00:00 120 mm[Hg] [facility] Body Weight 2021-08-26 00:00:00 2680 [oz_av] [facility] s BP Diastolic 2021-08-19 00:00:00 81 mm[Hg] [facility] s Height 2021-08-19 00:00:00 66 [in_i] [facility] BMI (Body Mass 2021-08-19 00:00:00 27 kg/m2 [facility] s BP Systolic 2021-08-19 00:00:00 136 mm[Hg] [facility] Body Weight 2021-08-19 00:00:00 2672 [oz_av] [facility] s BP Diastolic 2021-08-06 00:00:00 91 mm[Hg] [facility] Height 2021-08-06 00:00:00 66 [in_i] [facility] BMI (Body Mass 2021-08-06 00:00:00 27.1 kg/m2 [facility] s BP Systolic 2021-08-06 00:00:00 145 mm[Hg] [facility] Body Weight 2021-08-06 00:00:00 2690.4 [oz_av] [facility] BP Diastolic 2021-07-16 00:00:00 76 mm[Hg] [facility] Height 2021-07-16 00:00:00 66 [in_i] [facility] BMI (Body Mass 2021-07-16 00:00:00 27.3 kg/m2 [facility] BP Systolic 2021-07-16 00:00:00 124 mm[Hg] [facility] Body Weight 2021-07-16 00:00:00 2709 [oz_av] [facility] BP Diastolic 2021-07-03 00:00:00 79 mm[Hg] [facility] Height 2021-07-03 00:00:00 66 [in_i] [facility] BMI (Body Mass 2021-07-03 00:00:00 27.5 kg/m2 [facility] s BP Systolic 2021-07-03 00:00:00 125 mm[Hg] [facility] Body Weight 2021-07-03 00:00:00 2728 [oz_av] [facility] BP Diastolic 2021-06-26 00:00:00 84 mm[Hg] [facility] Height 2021-06-26 00:00:00 66 [in_i] [facility] BMI (Body Mass 2021-06-26 00:00:00 27.4 kg/m2 [facility] s BP Systolic 2021-06-26 00:00:00 142 mm[Hg] [facility] Body Weight 2021-06-26 00:00:00 2714 [oz_av] [facility] BP Diastolic 2021-06-19 00:00:00 84 mm[Hg] [facility] Height 2021-06-19 00:00:00 66 [in_i] [facility] BMI (Body Mass 2021-06-19 00:00:00 28 kg/m2 [facility] s BP Systolic 2021-06-19 00:00:00 141 mm[Hg] [facility] Body Weight 2021-06-19 00:00:00 2773 [oz_av] [facility] BP Diastolic 2021-06-13 00:00:00 87 mm[Hg] [facility] Height 2021-06-13 00:00:00 66 [in_i] [facility] BMI (Body Mass 2021-06-13 00:00:00 27.8 kg/m2 [facility]) [facility] s BP Systolic 2021-06-13 00:00:00 139 mm[Hg] [facility] Body Weight 2021-06-13 00:00:00 2760 [oz_av] [facility] BP Diastolic 2021-05-29 00:00:00 94 mm[Hg] [facility] Height 2021-05-29 00:00:00 66 [in_i] [facility] BMI (Body Mass 2021-05-29 00:00:00 28.4 kg/m2 [facility] s BP Systolic 2021-05-29 00:00:00 135 mm[Hg] [facility] Body Weight 2021-05-29 00:00:00 2816 [oz_av] [facility] s BP Diastolic 2021-05-22 00:00:00 87 mm[Hg] [facility] Height 2021-05-22 00:00:00 66 [in_i] [facility] BMI (Body Mass 2021-05-22 00:00:00 28.7 kg/m2 [facility] BP Systolic 2021-05-22 00:00:00 143 mm[Hg] [facility] Body Weight 2021-05-22 00:00:00 2848 [oz_av] [facility] BP Diastolic 2021-04-21 00:00:00 80 mm[Hg] [facility] BP Systolic 2021-04-21 00:00:00 132 mm[Hg] [facility] Body Weight 2021-04-21 00:00:00 2937.6 [oz_av] [facility] s BP Diastolic 2021-03-05 00:00:00 88 mm[Hg] [facility] BP Systolic 2021-03-05 00:00:00 122 mm[Hg] [facility] Procedures Procedure Date / Time Performing Clinician Source Performed Partial Hysterectomy 2012-05-17 00:00:00 [facility] Bilateral Oophorectomy [facility] Excision of Bilateral [facility] Plan of Care Planned Activity Planned Date Details Comments Source Future Scheduled Test 2022-03-23 HEPATITIS B VACCINES [facility] 12:12:22 (1 of 3 - 3-dose series) [code = HEPATITIS B VACCINES (1 of 3 - 3-dose series)] Future Scheduled Test 2022-03-23 COVID-19 VACCINE [facility] 12:12:22 (#1) [code = COVID-19 VACCINE (#1)] Future Scheduled Test 2022-03-23 Hepatitis C [facility] 12:12:22 screening (procedure) [code = 212962364] Future Scheduled Test 2022-03-23 Screening for [facility] 12:12:22 malignant neoplasm of cervix (procedure) [code = 182852380] Future Scheduled Test 2022-03-23 BREAST CANCER [facility] 12:12:22 SCREENING [code = BREAST CANCER SCREENING] Future Scheduled Test 2022-03-23 COLONOSCOPY [facility] 12:12:22 SCREENING [code = COLONOSCOPY SCREENING] Future Scheduled Test 2022-03-23 SHINGLES VACCINES (1 [facility] 12:12:22 of 2) [code = SHINGLES VACCINES (1 of 2)] Future Scheduled Test 2022-03-23 INFLUENZA VACCINE [facility] 12:12:22 [code = INFLUENZA VACCINE] Diagnostic Test 2021-12-08 lipid panel, blood [facility] Pending 00:00:00 [code = lipid panel, Hospita l Clinics blood] Diagnostic Test 2021-12-08 HbA1c (hemoglobin [facility] Pending 00:00:00 A1c), blood [code = [facility] HbA1c (hemoglobin A1c), blood] Future Appointment 2022-06-08 [facility] 15:15:00 Danielle Ramos B; [facility] B, [place] [address] Encounters Start End Encounter Admission Attending Care Care Encounter Source Date/Time Date/Time Type Type Clinicians Facility Department ID 2022-02-28 2022-02-28 Outpatient KEFFER_A [facility] [id number] [place] 00:00:00 00:00:00 015 [facility] 2022-01-28 2022-01-28 Outpatient [facility] [id number] [place] 00:00:00 00:00:00 914 [facility] 2021-12-20 2021-12-20 Outpatient [facility] [id number] [place] 00:00:00 00:00:00 806 [facility] 2021-12-08 2021-12-08 Outpatient [facility] [id number] [place] 06:57:00 06:57:00 725 Commun i ty [facility] Clin[facility] 2021-12-08 2021-12-08 Belgica [facility] [place] 725 [place] 00:00:00 00:00:00 Scarlett [facility]ilera MD: [address] [facility] [address], [facility] l [address], [place], [place] CLINIC, [address] [place] , Ph. 2021-12-08 2021-12-08 Outpatient CarolinaBelgica [facility] [id number] 00:00:00 00:00:00 Taryn [id number] 2021-10-30 2021-10-30 Outpatient CAROLINA_H[facility] [id number] [place] 11:42:00 11:42:00 616 [facility] 2021-10-30 2021-10-30 [facility] [place] 00:00:00 00:00:00 Aida, [facility] MSN, ADVERTISING CLERK, Hospital - ty AGRICULTURE INSPECTOR-C: [address] [facility], [facility] s [address], [address], A[place], [place] MSN, AGRICULTURE INSPECTOR-C [address] , Ph. 2021-10-30 2021-10-30 [facility] [id number] 00:00:00 00:00:00 Jayla [id number] 2021-10-21 2021-10-21 Outpatient CAROLINA_[facility] [id number] [place] 11:09:00 11:09:00 607 [facility] 2021-10-21 2021-10-21 [facility] [place] 00:00:00 00:00:00 Aida [facility] MSN, ADVERTISING CLERK, Hospital - ty AGRICULTURE INSPECTOR-C: [address] [place] [facility], [facility] s [address], [facility] [address], [place] MSN, AGRICULTURE INSPECTOR-C [address] , Ph. 2021-10-21 2021-10-21 [facility] [id number] 00:00:00 00:00:00 Jayla [id number] 2021-10-14 2021-10-14 Outpatient CAROLINA_[facility] [id number] [place] 11:05:00 11:05:00 531 [facility] i ty [facility] Clinics 2021-10-14 2021-10-14 [facility] [place] 00:00:00 00:00:00 Aida, [facility] MSN, ADVERTISING CLERK, Hospital - ty AGRICULTURE INSPECTOR-C: [address] [place] [facility] s [address], [address], [place], [place] MSN, AGRICULTURE INSPECTOR-C [address] , Ph. 2021-10-14 2021-10-14 Outpatient Aida [facility] [id number] 00:00:00 00:00:00 Jayla [id number] 2021-09-30 2021-09-30 Outpatient CAROLINA_[facility] [id number] [place] 05:37:00 05:37:00 517 [facility] 2021-09-30 2021-09-30 [facility] [place] 00:00:00 00:00:00 Aida, [facility] [place]N, ADVERTISING CLERK, Hospital - ty AGRICULTURE INSPECTOR-C: [address] [place] [address] [facility], Clinic s [address], [address], [place], [place] MSN, AGRICULTURE INSPECTOR-C [address] , Ph. 2021-09-30 2021-09-30 Outpatient Aida [facility] [id number] 00:00:00 00:00:00 Jayla [id number] 2021-09-16 2021-09-16 Outpatient CAROLINA_[facility] [id number] [place] 05:37:00 05:37:00 503 [facility] 2021-09-16 2021-09-16 [facility] [place] 00:00:00 00:00:00 Aida, [facility] MSN, ADVERTISING CLERK, Hospital - ty AGRICULTURE INSPECTOR-C: [address] [place] [facility] Clinic s [address], [facility] [address], [place] MSN, AGRICULTURE INSPECTOR-C [address] , Ph. 2021-09-16 2021-09-16 [facility] [id number] 00:00:00 00:00:00 Jayla [id number] 2021-09-15 2021-09-15 Outpatient [facility] [id number] [place] 05:21:00 05:21:00 502 [facility] 2021-09-04 2021-09-04 Outpatient [facility] [id number] [place] 05:23:00 05:23:00 421 [facility] i ty [facility] 2021-09-04 2021-09-04 [facility] [place] 00:00:00 00:00:00 Aida, [facility] [place] MSN, ADVERTISING CLERK, Hospital - ty AGRICULTURE INSPECTOR-C: [address] [place] [facility] [address], Clinic s [address], [facility] [address], [place], [place] MSN, AGRICULTURE INSPECTOR-C [address] , Ph. 2021-09-04 2021-09-04 Outpatient Aida [facility] [id number] 00:00:00 00:00:00 Jayla [id number] 2021-08-26 2021-08-26 Outpatient [facility] [id number] [place] 05:21:00 05:21:00 412 Commun i ty Hosp[facility] Clinics 2021-08-26 2021-08-26 [facility] [place] 00:00:00 00:00:00 Aida, [facility] MSN, ADVERTISING CLERK, Hospital - ty AGRICULTURE INSPECTOR-C: [address] [place] [facility] [address], Clinic s [address], [address], [place] MSN, AGRICULTURE INSPECTOR-C [address] , Ph. 2021-08-19 2021-08-19 Outpatient [facility] [id number] [place] 05:24:00 05:24:00 405 Commun i ty [facility] Clinics 2021-08-19 2021-08-19 [facility] [place] 00:00:00 00:00:00 Aida [facility] MSN, ADVERTISING CLERK, Hospital - ty AGRICULTURE INSPECTOR-C: [address] [place] [facility] [address], Clinic s [address], [facility] [address], [place] MSN, AGRICULTURE INSPECTOR-C [address] , Ph. 2021-08-19 2021-08-19 [facility] [id number] 00:00:00 00:00:00 [facility] [id number] 2021-08-11 2021-08-11 Outpatient [facility] [id number] [place] 09:34:00 09:34:00 328 Commun i ty [facility]osp[facility] Clinics 2021-08-06 2021-08-06 Outpatient [facility] [id number] [place] 05:16:00 05:16:00 323 Commun i ty [facility] 2021-08-06 2021-08-06 [facility] [place] 00:00:00 00:00:00 Aida [facility] MSN, ADVERTISING CLERK, Hospital - ty AGRICULTURE INSPECTOR-C: [address] [place] [facility], [facility], Clinic s [address], [address], [place], [place] MSN, AGRICULTURE INSPECTOR-C [address] , Ph. 2021-08-06 2021-08-06 Outpatient Aida [facility] [id number] 00:00:00 00:00:00 Jayla [id number] 2021-07-16 2021-07-16 Outpatient [facility] [id number] [place] 05:25:00 05:25:00 302 [facility] 2021-07-16 2021-07-16 [facility] [place] 00:00:00 00:00:00 Aida, [facility] MSN, ADVERTISING CLERK, Hospital - ty AGRICULTURE INSPECTOR-C: [address] [place] [address] [facility], [facility] s [address], [facility] [address], [place], [place] MSN, AGRICULTURE INSPECTOR-C [address] , Ph. 2021-07-16 2021-07-16 Outpatient Aida [facility] [id number] 00:00:00 00:00:00 Jayla [id number] 2021-07-07 2021-07-07 Outpatient [facility] [id number] [place] 08:24:00 08:24:00 221 Commun i ty Hosp[facility] Clinics 2021-07-03 2021-07-03 Outpatient [facility] [id number] [place] 05:20:00 05:20:00 217 [facility] i [facility] 2021-07-03 2021-07-03 [facility] [place] 00:00:00 00:00:00 Aida, [facility] [place] [facility] MSN, ADVERTISING CLERK, Hospital - ty AGRICULTURE INSPECTOR-C: [address] [place] [facility], Clinic s [address], [facility] [address], [place], [place] MSN, AGRICULTURE INSPECTOR-C [address] , Ph. 2021-07-03 2021-07-03 Outpatient Aida [facility] [id number] 00:00:00 00:00:00 Jayla [id number] 2021-06-30 2021-06-30 Outpatient [facility] [id number] [place] 02:47:00 02:47:00 214 [facility] 2021-06-26 2021-06-26 Outpatient CAROLINA_A [facility] [id number] [place] 12:56:00 12:56:00 210 Commun i ty [facility] Clinics 2021-06-26 2021-06-26 [facility] [place] 00:00:00 00:00:00 Aida [facility] MSN, ADVERTISING CLERK, Hospital - ty AGRICULTURE INSPECTOR-C: [address] [place] [facility], [facility] s [address], [facility] [address], [place], [place] MSN, AGRICULTURE INSPECTOR-C [address] , Ph. 2021-06-26 2021-06-26 Outpatient Aida [facility] [id number] 00:00:00 00:00:00 [facility] [id number] 2021-06-19 2021-06-19 Outpatient CAROLINA_H[facility] [id number] [place] 05:20:00 05:20:00 203 [facility] i [facility] 2021-06-19 2021-06-19 [facility] [place] 00:00:00 00:00:00 Aida [facility] MSN, ADVERTISING CLERK, Hospital - ty AGRICULTURE INSPECTOR-C: [address] [place] [facility] Clinic s [address], [address], [place] MSN, AGRICULTURE INSPECTOR-C [address] , Ph. 2021-06-19 2021-06-19 Outpatient Aida [facility] [id number] 00:00:00 00:00:00 Jayla [id number] 2021-06-13 2021-06-13 Outpatient [facility] [id number] [place] 05:12:00 05:12:00 128 Commun i ty [facility] Clinics 2021-06-13 2021-06-13 [facility] [place] 00:00:00 00:00:00 Aida [facility] MSN, ADVERTISING CLERK, Hospital - ty AGRICULTURE INSPECTOR-C: [address] [place] [facility], [facility] s [address], [facility] [address], [place] MSN, AGRICULTURE INSPECTOR-C [address] , Ph. 2021-06-13 2021-06-13 Outpatient Aida [facility] [id number] 00:00:00 00:00:00 Jayla [id number] 2021-06-04 2021-06-04 Outpatient KEFFER[facility] [id number] [place] 04:00:00 04:00:00 119 Commun i ty [facility] Clinics 2021-05-29 2021-05-29 Outpatient [facility]_A [facility] [id number] [place] 05:04:00 05:04:00 113 Commun i ty [facility] Clinics 2021-05-29 2021-05-29 [facility] [place] 00:00:00 00:00:00 Aida, [facility] [place] MSN, ADVERTISING CLERK, Hospital - ty AGRICULTURE INSPECTOR-C: [address] [place] [facility], [facility] s [address], [facility] [address], [place] MSN, AGRICULTURE INSPECTOR-C [address] , Ph. 2021-05-29 2021-05-29 Outpatient Aida [facility] [id number] 00:00:00 00:00:00 Jayla [id number] 2021-05-22 2021-05-22 Outpatient CAROLINA_A [facility] [id number] [place] 05:49:00 05:49:00 106 Commun i [facility] Clinics 2021-05-22 2021-05-22 Jayla [facility] [place] 00:00:00 00:00:00 Scarlett Parra MSN, ADVERTISING CLERK, [facility] [address] [place] [facility] [address], Clinic s [address], [facility] [address], [place], [place] MSN, [facility] [address] , Ph. 2021-05-22 2021-05-22 Outpatient Aida [facility] [id number] 00:00:00 00:00:00 Jayla [id number] 2021-04-21 2021-04-21 Outpatient CAROLINA_[facility] [id number] [place] 06:14:00 06:14:00 206 [facility] i [facility] Clinics 2021-04-21 2021-04-21 Outpatient Belgica Aguilera [facility] [id number] 00:00:00 00:00:00 Taryn [id number] 2021-04-21 2021-04-21 [facility] [place] 00:00:00 00:00:00 Scarlett Aguilera MD: [address] [facility] a [address], [facility] l [address], HOSPITAL [facility] [place] [address] [address] [place]INA , Ph. 2021-04-21 2021-04-21 Outpatient Carolina Belgica [facility] [id number] 00:00:00 00:00:00 Taryn [id number] 2021-03-18 2021-03-18 Outpatient CAROLINA_Harmony [facility] [id number] [place] 01:41:00 01:41:00 102 Commun i [facility] Clinics 2021-03-05 2021-03-05 Outpatient CAROLINA_Harmony [facility] [id number] [place] 06:23:00 06:23:00 020 Commun i ty Hosp[facility] Clinics 2021-03-05 2021-03-05 Outpatient Carolina Belgica [facility] [id number] 00:00:00 00:00:00 Taryn [id number] 2021-03-05 Eblgica Taryn [facility] [place] 020 [place] 00:00:00 00:00:00 Scarlett Aguilera MD: [address] [facility] a [address], COMMUNITY l [address], HOSPITAL [facility], [facility], [address] CAR[place]INA , Ph. 2021-02-27 2021-02-27 Outpatient CAROLINA_Harmony [facility] [id number] [place] 02:16:00 02:16:00 014 Commun i ty [facility]osp[facility] Clinics 2020-08-26 2020-08-26 Outpatient MAFFET, [facility] [id number] [place] 00:00:00 00:00:00 KAR [address] 2020-08-26 2020-08-26 Outpatient MAFFET, [facility] [id number] [address] [place] [address] 00:00:00 00:00:00 KAR [address] 2020-06-17 2020-06-17 Outpatient KULWINDER VILLEGAS [facility] [id number] [place] 00:00:00 00:00:[address] 2020-06-17 2020-06-17 Outpatient KULWINDER VILLEGAS [facility] [id number] [place] 00:00:00 00:00:[address] Results This patient has no known results.
[2022-05-02] MEDS ORDERED: NA CHLORIDE 0.9% 1,000 ML ONE (18:26)
[2022-05-02 18:32] LABS: Urine Blood Negative (Negative); Urine Glucose Negative (Negative); Urine Protein Negative (Negative); Urine Specific Gravity 1.025 (1.005-1.030); Urine pH 6.5 (5.0-7.0)
[2022-05-02 18:48] LABS: Urine Specific Gravity/Preg 1.025 (1.005-1.030)
[2022-05-02 18:53] LABS: Absolute Lymphocytes (CBC) 2.3 K/uL (0.7-4.9); Hematocrit 41.4 % (36.0-45.0); Lymphocytes % 32.8 % (15.3-44.8); MPV 7.7 fL (7.6-11.3); RBC Red Blood Cell Count 4.82 M/uL (3.86-4.86)
--- NOTE | 2022-05-02 20:07 | RAD REPORT ---
EXAM DESCRIPTION: CT - Abdomen Pelvis W Contrast - 05/02/2022 7:45 pm CLINICAL HISTORY: Abdominal pain COMPARISON: none. TECHNIQUE: Computed axial tomography of the abdomen pelvis was obtained. 100 cc Isovue-300 was admin istered intravenously. Oral contrast was not requested which limits evaluation of bowel and appendix All CT scans are performed using dose optimization technique as appropriate and may include automated exposure control or mA/KV adjustment according to patient size. FINDINGS: The liver, spleen, pancreas, adrenal and kidneys appear unremarkable. There is no evidence of diverticulitis. Hysterectomy. Appendix not clearly seen No adnexal mass appears. Small umbilical hernia IMPRESSION: No acute abnormality is displayed.
[2022-05-02 21:35] LABS: Albumin 3.6 g/dL (3.4-5.0); Bilirubin Total 0.3 mg/dL (0.2-1.0); Potassium 3.7 mmol/L (3.5-5.1); Protein, Total 7.1 g/dL (6.4-8.2)
--- NOTE | 2022-05-02 21:41 | EDPHYS ---
Physician Documentation [facility] Name: Betty Funes Age: 51 yrs Sex: Female : 1970 Arrival Date: 05/02/2022 Time: 16:50 Bed 13 Private MD: Belgica Aguilera ED Physician Conrad Hampton HPI: 05/02 20:22 This 51 yrs old Female presents to ER via Ambulatory with complaints of Abdominal Pain, kb Vomiting. 20:22 The patient presents with abdominal pain right lower quadrant. Onset: The kb symptoms/episode began/occurred today. The symptoms do not radiate. Associated signs and symptoms: Pertinent positives: nausea, vomiting, and diarrhea, Pertinent negatives: fever. The symptoms are described as constant. Modifying factors: The symptoms are alleviated by nothing, the symptoms are aggravated by nothing. Severity of pain: At its worst the pain was mild in the emergency department the pain is unchanged. The patient has not experienced similar symptoms in the past. The patient has not recently seen a physician. Pt reports n/v/d yesterday, lower abd pain today. Historical: - Allergies: 17:00 Inapsine; ph - PMHx: 17:00 Hypothyroidism; Hypercholesterolemia; ph - PSHx: 17:00 Total abdominal hysterectomy; ph - Immunization history:: Adult Immunizations unknown. - Social history:: Smoking status: Patient denies any tobacco usage or history of. ROS: 20:21 Constitutional: Negative for fever, chills, and weight loss. kb 20:21 Abdomen/GI: Positive for abdominal pain, nausea, vomiting, and diarrhea. 20:21 All other systems are negative. Exam: 20:21 Constitutional: This is a well developed, well nourished patient who is awake, alert, kb and in no acute distress. Head/Face: Normocephalic, atraumatic. ENT: Moist Mucous membranes Cardiovascular: Regular rate and rhythm with a normal S1 and S2. No gallops, murmurs, or rubs. No pulse deficits. Respiratory: Respirations even and unlabored. No increased work of breathing. Talking in full sentences Skin: Warm, dry with normal turgor. Normal color. MS/ Extremity: Pulses equal, no cyanosis. Neurovascular intact. Full, normal range of motion. Neuro: Awake and alert, GCS 15, oriented to person, place, time, and situation. Moves all extremities. Normal gait. Psych: Awake, alert, with orientation to person, place and time. Behavior, mood, and affect are within normal limits. 20:21 Abdomen/GI: Inspection: abdomen appears normal, Bowel sounds: normal, Palpation: soft, in all quadrants, mild abdominal tenderness, in the right lower quadrant. Vital Signs: 16:58 BP 140 / 88; Pulse 89; Resp 18; Temp 97.7; Pulse Ox 100% on R/A; Weight 79.38 kg; ph Height 5 ft. 6 in. (167.64 cm); Pain 8/10; 21:20 BP 125 / 81; Pulse 78; Resp 17; Pulse Ox 100% on R/A; Pain 0/10; ke1 16:58 Body Mass Index 28.25 (79.38 kg, 167.64 cm) ph MDM: 17:03 Patient medically screened. kb 20:21 Data reviewed: vital signs, nurses notes. Data interpreted: Pulse oximetry: on room air kb is 100 %. Interpretation: normal. Counseling: I had a detailed discussion with the patient and/or guardian regarding: the historical points, exam findings, and any diagnostic results supporting the discharge/admit diagnosis, lab results, radiology results, the need for outpatient follow up, a family practitioner, to return to the emergency department if symptoms worsen or persist or if there are any questions or concerns that arise at home. 05/02 17:05 Order name: CBC with Diff; Complete Time: 19:05 kb 05/02 17:05 Order name: CMP; Complete Time: 21:40 kb 05/02 17:05 Order name: Lipase; Complete Time: 21:40 kb 05/02 17:05 Order name: CT Abd/Pelvis - IV Contrast Only; Complete Time: 20:09 kb 05/02 18:33 Order name: Urine Dipstick-Ancillary; Complete Time: 18:33 EDMS 05/02 18:42 Order name: Urine --Ancillary (enter results); Complete Time: 19:05 eb 05/02 17:06 Order name: IV Saline Lock; Complete Time: 18:45 kb 05/02 17:06 Order name: Labs collected and sent; Complete Time: 18:46 kb Administered Medications: 18:46 Drug: NS 0.9% 1000 ml Route: IV; Rate: 1 bolus; Site: right antecubital; mb9 Disposition: 05/03 19:40 Co-signature as Attending Physician, Conrad Hampton MD. rn Disposition Summary: 05/02/22 21:41 Discharge Ordered Location: Home kb Condition: Stable kb Diagnosis - Lower abdominal pain, unspecified kb Followup: kb - With: Emergency Department - When: As needed - Reason: Worsening of condition Followup: kb - With: Private Physician - When: 2 - 3 days - Reason: Recheck today's complaints, Continuance of care, Re-evaluation by your physician Discharge Instructions: - Discharge Summary Sheet kb - Abdominal Pain, Adult, [id number] kb Forms: - Medication Reconciliation Form kb - Thank You Letter kb - Antibiotic Education kb - Prescription Opioid Use kb Prescriptions: - Zofran 4 mg Oral Tablet - take 1 tablet by ORAL route every 6 hours As needed; 20 tablet; Refills: 0, kb Product Selection Permitted - Diclofenac Sodium 75 mg Oral tablet,delayed release (DR/EC) - take 1 tablet by ORAL route 2 times per day As needed; 30 tablet; Refills: 0, kb Product Selection Permitted Signatures: Dispatcher [employer] EDDiana Herrera, ESTHETICIAN AND MANAGER MEDICAL SPA-C ESTHETICIAN AND MANAGER MEDICAL SPA-Ckb Conard Hampton MD MD rn Hall, Patricia, RN RN ph Breneman, Mary Beth RN RN mb9
--- NOTE | 2022-05-02 21:41 | ER ---
Nurse's Notes [facility] Name: Betty Funes Age: 51 yrs Sex: Female : 1970 Arrival Date: 05/02/2022 Time: 16:50 Bed 13 Private MD: Belgica Aguilera Diagnosis: Lower abdominal pain, unspecified Presentation: 05/02 16:58 Chief complaint: Patient states: N/V/D yesterday, today RLQ pain, denies fever or ph chills. Coronavirus screen: Vaccine status: Patient reports receiving the 2nd dose of the covid vaccine. Ebola Screen: No symptoms or risks identified at this time. Initial Sepsis Screen: Does the patient meet any 2 criteria? No. Patient's initial sepsis screen is negative. Does the patient have a suspected source of infection? No. Patient's initial sepsis screen is negative. Risk Assessment: Do you want to hurt yourself or someone else? Patient reports no desire to harm self or others. Onset of symptoms was May 02, 2022. 16:58 Method Of Arrival: Ambulatory 16:58 Acuity: CARLOS 3 ph Historical: - Allergies: 17:00 Inapsine; ph - PMHx: 17:00 Hypothyroidism; Hypercholesterolemia; ph - PSHx: 17:00 Total abdominal hysterectomy; ph - Immunization history:: Adult Immunizations unknown. - Social history:: Smoking status: Patient denies any tobacco usage or history of. Screenin:00 [facility] ED Fall Risk Assessment (Adult) History of falling in the last 3 months, ke1 including since admission No falls in past 3 months (0 pts) Confusion or Disorientation No (0 pts) Intoxicated or Sedated No (0 pts) Impaired Gait No (0 pts) Mobility Assist Device Used No (0 pt) Altered Elimination No (0 pt) Score/Fall Risk Level 0 - 2 = Low Risk. Abuse screen: Denies threats or abuse. Nutritional screening: No deficits noted. Tuberculosis screening: No symptoms or risk factors identified. Assessment: 18:46 General: Appears in no apparent distress. comfortable, Behavior is calm, cooperative, mb9 appropriate for age. Pain: Complains of pain in RLQ Pain does not radiate. Pain currently is 8 out of 10 on a pain scale. Quality of pain is described as stabbing, throbbing, Is intermittent. Neuro: Fernandes Agitation-Sedation Scale (RASS): 0 - Alert and Calm Level of Consciousness is awake, alert, obeys commands, Oriented to person, place, time, situation, Appropriate for age. Cardiovascular: Heart tones S1 S2 present Rhythm is regular. Respiratory: Airway is patent Respiratory effort is even, unlabored, Respiratory pattern is regular, symmetrical, Breath sounds are clear bilaterally. GI: Abdomen is flat, non-distended, Bowel sounds present X 4 quads. Abd is soft Abdomen is tender to palpation in right lower quadrant Reports diarrhea, nausea. : No signs and/or symptoms were reported regarding the genitourinary system. EENT: No signs and/or symptoms were reported regarding the EENT system. Derm: Skin is pink, warm \T\ dry. Musculoskeletal: Range of motion: intact in all extremities. 21:21 Reassessment: Patient and/or family updated on plan of care and expected duration. Pain ke1 level reassessed. Patient is alert, oriented x 3, equal unlabored respirations, skin warm/dry/pink. Patient denies pain at this time. Patient states feeling better. Patient states symptoms have improved. 21:51 Reassessment: Patient denies pain at this time. Patient states feeling better. Patient ke1 states symptoms have improved. Vital Signs: 16:58 BP 140 / 88; Pulse 89; Resp 18; Temp 97.7; Pulse Ox 100% on R/A; Weight 79.38 kg; ph Height 5 ft. 6 in. (167.64 cm); Pain 8/10; 21:20 BP 125 / 81; Pulse 78; Resp 17; Pulse Ox 100% on R/A; Pain 0/10; ke1 16:58 Body Mass Index 28.25 (79.38 kg, 167.64 cm) ph ED Course: 16:50 Patient arrived in ED. mr 16:50 Belgica Aguilera MD is Private Physician. mr 17:00 Triage completed. ph 17:02 Arm band placed on Patient placed in an exam room. ph 17:03 [facility]C [facility] kb 17:03 Conrad Hampton MD is Attending Physician. kb 18:17 Patient placed in an exam room, on a stretcher. ll1 18:22 Rachel Bautista RN is Primary Nurse. mb9 18:40 Inserted saline lock: 20 gauge in right antecubital area, using aseptic technique. mb9 Blood collected. 18:46 CBC with Diff Sent. mb9 18:46 CMP Sent. mb9 18:46 Lipase Sent. mb9 19:00 Bed in low position. Call light in reach. ke1 19:00 No provider procedures requiring assistance completed. ke1 19:47 CT Abd/Pelvis - IV Contrast Only In Process Unspecified. EDMS 21:08 Inserted saline lock: 22 gauge in left forearm, using aseptic technique. ke1 21:49 Primary Nurse role handed off by Rachel Bautista, GIRMA 21:50 Armando Duke, GIRMA is Primary Nurse. ke1 21:51 IV discontinued. ke1 Administered Medications: 18:46 Drug: NS 0.9% 1000 ml Route: IV; Rate: 1 bolus; Site: right antecubital; mb9 Medication: 21:51 VIS not applicable for this client. ke1 Outcome: 21:41 Discharge ordered by . kb 21:50 Discharged to home ambulatory. ke1 21:50 Condition: good 21:50 Discharge instructions given to patient. 21:51 Patient left the ED. ke1 Signatures: Dispatcher [employer] EDOK Diana Avery, CHIEF OF SURGERY-C CHIEF OF SURGERY-Ckb Geronimo Rachel ervin Kendra Da Silva, RN Filemon Siddiqui ph, RN RN ll1 Marsh, Wendy Armando Duke RN RN ke Rachel Bautista, GIRMA RAYO mb9
[2022-05-02 21:57] VITALS: TEMP 97.7; O2SAT 100
[2022-05-02 21:58] VITALS: BP 125/81
== END 2022-05-02 21:51 | disposition home or self-care (01) ==
LOC: ER 16:47
DX: R10.31 Right lower quadrant pain (principal); Z88.8 Allergy status to other drugs, medicaments and biological substances
CPT/HCPCS: 85025; 36415; 81025; 82565; 81003; 83690; 80053; 74177; Q9967; J7030; 99284